=== PATIENT | female | born 1950 | race Caucasian/White ===

== ENCOUNTER 2018-04-16 12:13 | Emergency (ER) | payer OTHER ==
--- OUTSIDE RECORDS SUMMARY | 2018-04-16 12:16 | XMS REPORT | Clinical Summary ---
:1950 Author Organization [facility] Address [address] [place] [address] Care Team Providers Name Role Phone Frank Silva MD Primary Care Provider Allergies Active Allergy Reactions Severity Noted Date Comments Codeine GI Intolerance 10/17/2017 Bad nausea Iodine Swelling, Rash High 10/17/2017 Throat swelling Penicillin G 10/17/2017 Medications Medication Sig Dispensed Refills Start End Date Status Date TOPROL XL 50 mg 24 hr 50 mg daily. 0 Active tablet 8 losartan (COZAAR) 25 MG Take 25 mg by 0 Active tablet mouth daily. 8 fluticasone (FLONASE) daily. 0 Active 50 mcg/actuation nasal 8 spray HYDROcodone-acetaminoph Take by mouth 0 Active en (NORCO) 10-325 mg every 6 (six) 8 per tablet hours as needed. omeprazole (PriLOSEC) Take 20 mg by 0 Active 20 MG capsule mouth daily. evolocumab (REPATHA Inject 140 mg 0 Active SURECLICK) 140 mg/mL under the skin pen injector injection every 14 (fourteen) days. ibuprofen Take 800 mg by 0 Active (ADVIL,MOTRIN) 800 MG mouth every 6 tablet (six) hours as needed for mild pain. traMADol (ULTRAM) 50 mg Take 50 mg by 0 11/09/19 Discontinued tablet mouth every 6 8 18 (six) hours as needed. methylPREDNISolone Take 1 tablet (32 mg total) by mouth daily for 2 days. Take 1 tab 6 hours prior to injection. 2 tablet 0 10/20/19 (MEDROL) 32 MG Take 1 tab 2 hours prior to injection 8 18 tabletIndications: Allergy to iodine diphenhydrAMINE Take 1 capsule 1 capsule 0 11/08/19 Discontinued (BENADRYL) 50 MG (50 mg total) 8 18 capsuleIndications: by mouth daily Allergy to iodine for 30 days. Take 1 tab 2 hours prior to injection traMADol (ULTRAM) 50 mg Take 1 tablet 40 tablet 1 12/19/19 tablet (50 mg total) 8 18 by mouth every 6 (six) hours as needed for severe pain for up to 40 days. traMADol (ULTRAM) 50 mg Take 1 tablet 30 tablet 1 03/27/19 tablet (50 mg total) 8 19 by mouth every 6 (six) hours as needed for moderate pain for up to 60 days. Active Problems Not on file Encounters Date Type Specialty Care Team Description 01/26/2018 Orders Only Orthopedic Surgery Brittany Green MA 01/26/2018 Refill Orthopedic Surgery Gerber Mantilla MD 01/04/2018 Office Visit Orthopedic Surgery Gerber Mantilla Lumbar herniated MD Shine disc (Primary Dx) 12/07/2017 Office Visit Orthopedic Surgery Gerber Mantilla Lumbar herniated MD [facility] disc (Primary Dx) 11/24/2017 Surgery Orthopedic Surgery Gerber Mantilla REVISION DISCECTOMY MD [facility] AND FUSION L4-5 11/24/2017 Anesthesia Event Orthopedic Surgery Sunil Kenney, ARTHUR 11/24/2017 Hospital Encounter Orthopedic Surgery Gerber Mantilla Bulge of lumbar disc without myelopathy; MD [facility] Lumbar stenosis with neurogenic claudication; Lumbosacral spinal stenosis; Acute sciatica; Acquired spondylolisthesis; Ankylosis of lumbosacral joint 11/17/2017 Documentation Orthopedic Surgery Gerber Mantilla MD 11/07/2017 Pre-Admit Testing Pre-Admission Gerber Mantilla Preop testing Appointment Testing MD Shine (Primary Dx) 11/07/2017 Office Visit Orthopedic Gerber Cedeno Lumbar herniated MD [facility] disc (Primary Dx) 10/24/2017 Hospital Encounter Radiology Gerber Mantilla Lumbar disc MD Shine herniation 10/17/2017 Office Visit Orthopedic Surgery Gerber Mantilla Lumbar disc herniation (Primary Dx); MD [facility] Allergy to iodine after 04/15/2017 Family History Medical History Relation Name Comments Cancer Mother Gissel Relation Name Status Comments Mother Gissel Social History Tobacco Use Types Packs/Day Years Used Date Current Every Day Smoker 0.5 40 Started: 02/27/1967 Smokeless Tobacco: Never Used Alcohol Use Drinks/Week oz/Week Comments No Sex Assigned at Date Recorded Not on file Job Start Date Occupation Industry Not on file Not on file Not on file Travel History Travel Start Travel End No recent travel history available. Last Filed Vital Signs Vital Sign Reading Time Taken Blood Pressure 145/65 11/24/2017 10:40 AM CDT Pulse 60 11/24/2017 10:40 AM CDT Temperature 36.3 C (97.4 F) 11/24/2017 10:40 AM CDT Respiratory Rate 16 11/24/2017 10:40 AM CDT Oxygen Saturation 98% 11/24/2017 10:40 AM CDT Inhaled Oxygen Concentration - - Weight 93.4 kg (206 lb) 11/24/2017 5:53 AM CDT Height 167.6 cm (5' 6") 11/24/2017 5:53 AM CDT Body Mass Index 33.25 11/24/2017 5:53 AM CDT Plan of Treatment Health Maintenance Due Date Last Done Comments BREAST CANCER SCREENING 2001 COLON CANCER SCREENING 2001 SHINGLES VACCINES (1 of 2) 2001 PNEUMOCOCCAL POLYSACCHARIDE VACCINE AGE 65 AND OVER 2016 PNEUMOCOCCAL-13 2016 INFLUENZA VACCINE 09/27/2017 Implants Implanted Type Area Director Of Market Research Device Shelf Model / Identifier Expiration Serial / Lot Date Nufix 5.0 Mm [employer]el - [id number] - [id number] Spinal N/A: 09/08/2022 [id number] / Implanted: Qty: 1 on 11/24/2017 by Gerber Mantilla MD Implants Spine [id number] / Lumbar LOT NA Nufix 5.0 [employer]el - [id number] - [id number] Spinal N/A: 09/08/2022 [id number] / Implanted: Qty: 1 on 11/24/2017 by Gerber Mantilla MD Implants Spine [id number] / Lumbar LOT NA Procedures Procedure Name Priority Date/Time Associated Comments Diagnosis SURGICAL PATHOLOGY Routine 11/24/2017 8:27 Results for this REQUEST AM CDT procedure are in the results section. NH AN ELECTIVE Routine 11/24/2017 7:36 ENDOTRACHEAL AIRWAY AM CDT Procedure Note - Valentino Smith CRNA - 11/24/2017 7:36 AM CDT Airway Date/Time: 11/24/2017 7:20 AM Performed by: VALENTINO SMITH Authorized by: MAYCOL FERREIRA Location: OR Urgency: Elective Difficult Airway: No Anesthesiologist: MAYCOL FERREIRA Resident/SURVEYING TEACHER/AA: VALENTINO SMITH Performed by: resident/SURVEYING TEACHER/AA Preoxygenated with 100% O2: Yes C-spine Precautions Maintained Throughout: Yes Mask Ventilation: Easy mask Final Airway Type: Endotracheal airway Final Endotracheal Airway: ETT Cuffed: Yes Technique Used: Direct laryngoscopy Devices/Methods Used in Placement: Intubating stylet Insertion Site: Oral Blade Type: Duron Laryngoscope Blade/Videolaryngoscope Blade Size: 2 ETT Size (mm): 7.0 Cuff at minimum occlusion pressure: Yes Measured from: Lips ETT to Lips (cm): 21 Placement Verified by: CO2 detection, direct visualization and equal breath sounds Laryngoscopic view: Grade I - full view of glottis Rapid Sequence Induction (RSI): No Modified RSI: No Number of Attempts at Approach: 1 Smooth, atraumatic laryngoscopy; dentition intact OR [place] < 1 HOUR Routine 11/24/2017 7:35 AM Results for this CDT procedure are in the results section. DISCECTOMY, 11/24/2017 7:15 AM Bulge of lumbar disc LUMBAR CDT without myelopathy Lumbar stenosis with neurogenic claudication Lumbosacral spinal stenosis Acute sciatica Acquired spondylolisthesis Ankylosis of lumbosacral joint Case Notes LARGE C-ARM Special Needs LARGE C-ARM, MICROSCOPE ECG PRE/POST OP Routine 11/07/2017 11:44 AM Preop testing Results for this CDT procedure are in the results section. ESTIMATED GFR Routine 11/07/2017 11:21 AM Results for this CDT procedure are in the results section. COMPREHENSIVE Routine 11/07/2017 11:21 AM Preop testing Results for this METABOLIC PANEL CDT procedure are in the results section. HC COMPLETE BLD COUNT Routine 11/07/2017 11:21 AM Preop testing Results for this W/AUTO DIFF CDT procedure are in the results section. IR EPIDURAL INJECTION Routine 10/24/2017 2:00 PM Lumbar disc Results for this LUMBAR CDT herniation procedure are in the results section. after 04/15/2017 Results Surgical pathology request (11/24/2017 8:27 AM CDT) [facility] DEPARTMENT OF PATHOLOGY AND GENOMIC MEDICINE Surgical pathology report See link below for PDF [facility] DEPARTMENT OF Lab Report PATHOLOGY AND GENOMIC MEDICINE Result status This is Final Report [facility] DEPARTMENT OF for [id number] PATHOLOGY AND GENOMIC MEDICINE Performing Organization Address City/[facility] Phone Number [facility] DEPARTMENT OF PATHOLOGY AND [address] [place] [address] GENOMIC MEDICINE OR [place] < 1 Hour (11/24/2017 7:35 AM CDT) Narrative Performed At IMPRESSION: C-arm fluoroscopy under one hour was provided in the OR for [facility] the referring physician. A radiologist was not present during the procedure. Refer to the Operative report issued by the performing provider for procedure details. LOCATION:[facility] 19 OR ROOM# 8 PROCEDURE:LUMBAR FUSION L4-L5 START TIME:7:15 END TIME:7:35 FLUORO TIME:3 SECONDS DOSE (mGy):3.46mGy TECH(S):GXA # 70 [id number] Procedure Note Hm Interface, Radiology Results Incoming - 11/24/2017 11:11 AM CDT IMPRESSION: C-arm fluoroscopy under one hour was provided in the OR for the referring physician. A radiologist was not present during the procedure. Refer to the Operative report issued by the performing provider for procedure details. LOCATION: [facility] 19 OR ROOM # 8 PROCEDURE: LUMBAR FUSION L4-L5 START TIME: 7:15 END TIME: 7:35 FLUORO TIME: 3 SECONDS DOSE (mGy):3.46 mGy TECH(S): GXA # 70 [id number] Performing Organization Address City/[facility]/Zipcode Phone Number [facility] [address] [place] [address] ECG Pre/Post Op (11/07/2017 11:44 AM CDT) Ventricular rate 54 [facility] Atrial rate 54 [facility] NH interval 160 [facility] QRSD interval 90 [facility] QT interval 422 [facility] QTC interval 400 [facility] P axis 1 62 [facility] QRS axis 1 38 [facility] T wave axis 61 [facility]USE EKG impression Sinus bradycardia-Possible Left atrial [facility] MUSE enlargement-Borderline ECG-No previous ECGs available- Performing Organization Address [facility] Phone Number [facility] MUSE [address] [place] [address] Estimated GFR (11/07/2017 11:21 AM CDT) GFR Non Af Amer 77 mL/min/1.73 m2 [facility] DEPARTMENT OF PATHOLOGY AND GENOMIC MEDICINE GFR Af Amer >90 mL/min/1.73 m2 [facility] DEPARTMENT OF Comment: PATHOLOGY AND GENOMIC Chronic kidney disease: <60 mL/min/1.73m2 MEDICINE Kidney failure: <15 mL/min/1.73m2 The estimated GFR is calculated from the IDMS-traceable Modification of Diet in Renal Disease Equation. The accuracy of the calculation is poor when the creatinine is normal. Calculated values >90 mL/min/1.73m2 are not reported. This equation has not been validated in children (<18 years), women, the elderly (>70 years), or ethnic groups other than Caucasians and Americans. Specimen Plasma specimen Performing Organization Address City/[facility]/Zipcode Phone Number [facility] DEPARTMENT OF PATHOLOGY AND [address] [place] [address] [email or web address] [facility] CBC with platelet and differential (11/07/2017 11:21 AM CDT) WBC 8.15 4.50 - 11.00 k/uL [facility] DEPARTMENT OF PATHOLOGY AND GENOMIC MEDICINE RBC 4.26 4.20 - 5.50 m/uL [facility] DEPARTMENT OF PATHOLOGY AND GENOMIC MEDICINE HGB 12.7 12.0 - 16.0 g/dL [facility] DEPARTMENT OF PATHOLOGY AND GENOMIC MEDICINE HCT 39.4 37.0 - 47.0 % [facility] DEPARTMENT OF PATHOLOGY AND GENOMIC MEDICINE MCV 92.5 82.0 - 100.0 fL [facility] DEPARTMENT OF PATHOLOGY AND GENOMIC MEDICINE MCH 29.8 27.0 - 34.0 pg [facility] DEPARTMENT OF PATHOLOGY AND GENOMIC MEDICINE MCHC 32.2 31.0 - 37.0 g/dL [facility] DEPARTMENT OF PATHOLOGY AND GENOMIC MEDICINE RDW - SD 45.2 37.0 - 55.0 fL [facility] DEPARTMENT OF PATHOLOGY AND GENOMIC MEDICINE MPV 11.4 8.8 - 13.2 fL [facility] DEPARTMENT OF PATHOLOGY AND GENOMIC MEDICINE Platelet count 239 150 - 400 k/uL [facility] DEPARTMENT OF PATHOLOGY AND GENOMIC MEDICINE Nucleated RBC 0.00 /100 WBC [facility] DEPARTMENT OF PATHOLOGY AND GENOMIC MEDICINE Neutrophils 60.6 39.0 - 69.0 % [facility] DEPARTMENT OF PATHOLOGY AND GENOMIC MEDICINE Lymphocytes 30.7 25.0 - 45.0 % [facility] DEPARTMENT OF PATHOLOGY AND GENOMIC MEDICINE Monocytes 5.6 0.0 - 10.0 % [facility] DEPARTMENT OF PATHOLOGY AND GENOMIC MEDICINE Eosinophils 1.7 0.0 - 5.0 % [facility] DEPARTMENT OF PATHOLOGY AND GENOMIC MEDICINE Basophils 0.9 0.0 - 1.0 % [facility] DEPARTMENT OF PATHOLOGY AND GENOMIC MEDICINE Immature granulocytes 0.5Comment: 0.0 - 1.0 % [facility] DEPARTMENT OF "Immature PATHOLOGY AND GENOMIC granulocytes" MEDICINE (promyelocytes, myelocytes, metamyelocytes) Specimen Blood Performing Organization Address City/State/Zipcode Phone Number [facility] DEPARTMENT OF PATHOLOGY AND [address] [place] [phone] GENOMIC MEDICINE Comprehensive metabolic panel (11/07/2017 11:21 AM CDT) Sodium 142 135 - 148 mEq/L [facility] DEPARTMENT OF PATHOLOGY AND GENOMIC MEDICINE Potassium 4.3 3.5 - 5.0 mEq/L [facility] DEPARTMENT OF PATHOLOGY AND GENOMIC MEDICINE Chloride 103 98 - 112 mEq/L [facility] DEPARTMENT OF PATHOLOGY AND GENOMIC MEDICINE CO2 27 24 - 31 mEq/L [facility] DEPARTMENT OF PATHOLOGY AND GENOMIC MEDICINE Anion gap 12@ANIO 7 - 15 mEq/L [facility] DEPARTMENT OF PATHOLOGY AND GENOMIC MEDICINE BUN 15 8 - 23 mg/dL [facility] DEPARTMENT OF PATHOLOGY AND GENOMIC MEDICINE Creatinine 0.75 0.50 - 0.90 mg/dL [facility] DEPARTMENT OF PATHOLOGY AND GENOMIC MEDICINE Glucose 90 65 - 99 mg/dL [facility] DEPARTMENT OF PATHOLOGY AND GENOMIC MEDICINE Calcium 9.8 8.8 - 10.2 mg/dL [facility] DEPARTMENT OF PATHOLOGY AND GENOMIC MEDICINE Protein 6.9 6.3 - 8.3 g/dL [facility] DEPARTMENT OF Comment: PATHOLOGY AND GENOMIC [place] 4.6-7.0 g/dL MEDICINE 1 week 4.4-7.6 g/dL 7 months-1year5.1-7.3 g/dL 1-2 years5.6-7.5 g/dL >3 years6.0-8.0 g/dL 18-150 6.3-8.3 g/dL Albumin 3.6 3.5 - 5.0 g/dL [facility] DEPARTMENT OF PATHOLOGY AND GENOMIC MEDICINE A/G ratio 1.1 0.7 - 3.8 [facility] DEPARTMENT OF PATHOLOGY AND GENOMIC MEDICINE Alkaline phosphatase 81 35 - 104 U/L [facility] DEPARTMENT OF PATHOLOGY AND GENOMIC MEDICINE AST 25 10 - 35 U/L [facility] DEPARTMENT OF PATHOLOGY AND GENOMIC MEDICINE ALT 23 5 - 50 U/L [facility] DEPARTMENT OF PATHOLOGY AND GENOMIC MEDICINE Total bilirubin 0.5 0.0 - 1.2 mg/dL [facility] DEPARTMENT OF PATHOLOGY AND GENOMIC MEDICINE Specimen Plasma specimen Performing Organization Address City/State/Zipcode Phone Number [facility] DEPARTMENT OF PATHOLOGY AND [address] [place] [address] [facility] IR Epidural Injection Lumbar (10/24/2017 2:00 PM CDT) Narrative Performed At EXAMINATION:IR EPIDURAL INJECTION LUMBAR HM [facility] CLINICAL HISTORY:M51.26 Other intervertebral disc displacementlumbar region, HNP OPERATORS: Dr. Rainey CONSENT: The risks and benefits of the procedure were fully explained to the patient in detail and all the patient's questions were answered. The patient agreed to proceed with the procedure and signed an informed consent. TECHNIQUE: The patient was brought to the angio suite and placed on the fluoroscopy table in prone position. The patient's lumbar region was prepped and draped in standard sterile fashion. Under fluoroscopy, the L4-Y8bbiql was localized. Previous L4 left hemilaminotomy is noted, therefore the epidural space was localized from the right paramedial approach. The skin over that region was infiltrated with 1% lidocaine. Under real-time fluoroscopic guidance, a 20 gauge Touhy needle was advanced percutaneously to theL4-Y9ehmcbada space via paramedial approach. Then, 2 cc of nonionic contrast agent was slowly injected, which demonstrated epidurogram of theL5 level. Subsequently 2 cc of Marcaine 0.25% and 10 milligrams of Decadron was slowly injected into the epidural space with intermittent pause to assess for any adverse effects of injection. The needle was then withdrawn and hemostasis was achieved with adequate pressure. The patient tolerated the procedure well without any immediate complications. TOTAL FLUOROSCOPY TIME: 0.1 minutes. Total fluoroscopic exposure images was 2 images. Total radiation exposure was 50 mGy. IMMEDIATE POST PROCEDURE FOLLOW-UP: The patient was observed in the radiology holding area for 45 minutes. At the conclusion of the observation period, the patient expressed 20 percent of the baseline pain. IMPRESSION: Successful uncomplicated fluoroscopic guided interlaminar epidural steroid injection atL4-L5. [facility]-[id number] Procedure Note Interface, Radiology Results Incoming - 10/24/2017 2:58 PM CDT EXAMINATION: IR EPIDURAL INJECTION LUMBAR CLINICAL HISTORY: M51.26 Other intervertebral disc displacement lumbar region , HNP OPERATORS: Dr. Rainey CONSENT: The risks and benefits of the procedure were fully explained to the patient in detail and all the patient's questions were answered. The patient agreed to proceed with the procedure and signed an informed consent. TECHNIQUE: The patient was brought to the angio suite and placed on the fluoroscopy table in prone position. The patient's lumbar region was prepped and draped in standard sterile fashion. Under fluoroscopy, the L4-L5 level was localized. Previous L4 left hemilaminotomy is noted, therefore the epidural space was localized from the right paramedial approach. The skin over that region was infiltrated with 1% lidocaine. Under real-time fluoroscopic guidance, a 20 gauge Touhy needle was advanced percutaneously to the L4-L5 epidural space via paramedial approach. Then, 2 cc of nonionic contrast agent was slowly injected, which demonstrated epidurogram of the L5 level. Subsequently 2 cc of Marcaine 0.25% and 10 milligrams of Decadron was slowly injected into the epidural space with intermittent pause to assess for any adverse effects of injection. The needle was then withdrawn and hemostasis was achieved with adequate pressure. The patient tolerated the procedure well without any immediate complications. TOTAL FLUOROSCOPY TIME: 0.1 minutes. Total fluoroscopic exposure images was 2 images. Total radiation exposure was 50 mGy. IMMEDIATE POST PROCEDURE FOLLOW-UP: The patient was observed in the radiology holding area for 45 minutes. At the conclusion of the observation period, the patient expressed 20 percent of the baseline pain. IMPRESSION: Successful uncomplicated fluoroscopic guided interlaminar epidural steroid injection at L4-L5. [facility]-[id number] Performing Organization Address City/State/Zipcode Phone Number [facility] [address] [place] [address] after 04/15/2017 Insurance Payer Benefit Plan / Group Subscriber ID Type Phone Address AETNA MEDICARE AETNA MEDICARE HMO/PPO [facility] xxxxxxxx HMO Advance Directives Patient has advance care planning documents on file. For more information, please contact:Francisco Singh[address] [place] [address]
--- NOTE | 2018-04-16 13:41 | RAD REPORT ---
EXAM DESCRIPTION: CT - Stone Protocol - 04/16/2018 1:21 pm CLINICAL HISTORY: Abdominal pain. Right flank pain COMPARISON: None. TECHNIQUE: Computed axial tomography of the abdomen pelvis was obtained without oral or IV contrast. Lack of IV and oral contrast limits evaluation of solid organs, bowel, and vessels. Coronal reformat ran images were obtained and reviewed. All CT scans are performed using dose optimization technique as appropriate and may include automated exposure control or mA/KV adjustment according to patient size. FINDINGS: Moderate right hydronephrosis with right perirenal stranding. Small calculi suspected with in the lower pole calyx. The right ureter is dilated. A ureteral calculus is not seen. A bladder calc ulus is not noted. Left renal calculus is not seen. The liver, spleen, pancreas and adrenals appear grossly normal There is no evidence of diverticulitis. The appendix appears normal IMPRESSION: Moderate right hydronephrosis. Right ureter is dilated. A ureteral calculus is not seen. Perhaps the patient has had a recently passed calculus.
[2018-04-16] MEDS ORDERED: FENTANYL CITR 100 MCG/2 ML ONE (13:50)
[2018-04-16] MEDS ORDERED: ONDANSETRON 4 MG/2 ML VIAL ONE (13:50)
[2018-04-16] MEDS ORDERED: NA CHLORIDE 0.9% 1,000 ML ONE (13:51)
[2018-04-16 14:16] LABS: Absolute Lymphocytes (CBC) 1.8 K/uL (0.7-4.9); Absolute Monocytes 0.6 K/uL (0.1-1.3); Absolute Neutrophil 7.2 K/uL (1.8-8.0); Basophils % 0.9 % (0-1.3); Eosinophils % 1.1 % (0-4.4); Hematocrit 42.6 % (36.0-45.0); Lymphocytes % 18.5 % (15.3-44.8); MPV 10.3 fL (7.6-11.3); Monocytes % 6.5 % (3.3-12.3); RBC Red Blood Cell Count 4.85 M/uL (3.86-4.86)
[2018-04-16 14:21] LABS: Urine Blood 3+ (NEG); Urine Glucose NEGATIVE (NEG); Urine Protein 2+ (NEG); Urine pH 8.5 (5.0-7.0)
[2018-04-16 14:26] LABS: Potassium 3.7 mmol/L (3.5-5.1)
[2018-04-16] MEDS ORDERED: KETOROLAC 30 MG/ML INJ ONE (14:57)
[2018-04-16 15:08] LABS: Urine Amorphous Sediment 1+ /HPF (NONE SEEN); Urine Bacteria <20 /HPF (<20); Urine Culture Reflex Order REFLEXED; Urine Mucus 1+ /HPF (NONE SEEN); Urine RBC >50 /HPF (NONE SEEN)
--- NOTE | 2018-04-16 15:17 | ER ---
Nurse's Notes [facility] Name: Leandra Bishop Age: 68 yrs Sex: Female : 1950 Arrival Date: 04/16/2018 Time: 12:15 Bed 18 Private MD: Pa Silva B Diagnosis: Calculus of kidney and ureter;Hydronephrosis Presentation: 04/16 12:52 Presenting complaint: RLQ pain that radiates to right flank sine this morning. hb Transition of care: patient was not received from another setting of care. Onset of symptoms was April 16, 2018. Risk Assessment: Do you want to hurt yourself or someone else? Patient reports no desire to harm self or others. Care prior to arrival: None. 12:52 Method Of Arrival: Ambulatory hb 12:52 Acuity: RODGER 3 hb 13:15 Initial Sepsis Screen: Does the patient meet any 2 criteria? No. Patient's initial hb sepsis screen is negative. Does the patient have a suspected source of infection? No. Patient's initial sepsis screen is negative. Historical: - Allergies: 12:55 Iodine; hb 12:55 PENICILLINS; hb 12:55 Codeine; hb - Home Meds: 12:55 metoprolol tartrate 50 mg oral tab [Active]; losartan oral oral [Active]; hb - PMHx: 12:55 "rapid heartbeat"; Hypertension; hb - Immunization history:: Adult Immunizations up to date. - Social history:: Smoking status: Patient uses tobacco products, smokes one-half pack cigarettes per day. - Ebola Screening: : No symptoms or risks identified at this time. Screenin:56 Abuse screen: Denies threats or abuse. Denies injuries from another. Nutritional hb screening: No deficits noted. Tuberculosis screening: No symptoms or risk factors identified. Fall Risk None identified. Assessment: 13:00 General: Appears in no apparent distress. uncomfortable, Behavior is calm, cooperative. hb Pain: Pain currently is 10 out of 10 on a pain scale. Neuro: Level of Consciousness is awake, alert, obeys commands, Oriented to person, place, time, situation. Cardiovascular: Capillary refill < 3 seconds Patient's skin is warm and dry. Respiratory: Airway is patent Respiratory effort is even, unlabored, Respiratory pattern is regular, symmetrical. GI: Abdomen is non-distended, Bowel sounds present X 4 quads. Abd is soft and non tender. : No signs and/or symptoms were reported regarding the genitourinary system. EENT: No signs and/or symptoms were reported regarding the EENT system. Derm: Skin is intact, is healthy with good turgor. Musculoskeletal: No signs and/or symptoms reported regarding the musculoskeletal system. 14:00 Reassessment: Patient appears in no apparent distress at this time. Patient and/or hb family updated on plan of care and expected duration. Pain level reassessed. Patient is alert, oriented x 3, equal unlabored respirations, skin warm/dry/pink. 15:00 Reassessment: Patient appears in no apparent distress at this time. Patient and/or hb family updated on plan of care and expected duration. Pain level reassessed. Patient is alert, oriented x 3, equal unlabored respirations, skin warm/dry/pink. Patient denies pain at this time. Patient states symptoms have improved. Vital Signs: 12:45 BP 181 / 73; Pulse 65; Resp 16; Pulse Ox 100% on R/A; Pain 10/10; hb 12:53 BP 205 / 93; Pulse 71; Resp 16; Temp 97.9; Pulse Ox 100% on R/A; Pain 10/10; hb 14:30 BP 152 / 65; Pulse 62; Resp 16; Pulse Ox 98% on R/A; hb 15:15 BP 148 / 64; Pulse 66; Resp 15; Pulse Ox 100% on R/A; hb ED Course: 12:15 Patient arrived in ED. mr 12:16 Pa Silva MD is Private Physician. mr 12:52 Palak Banks, LEXY is Primary Nurse. hb 12:53 Triage completed. hb 12:55 Lucia Alexandra FNP-C [facility]. kb 12:55 Tolu Card MD is Attending Physician. kb 12:55 Arm band placed on. hb 13:08 Initial lab(s) drawn, by me, sent to lab. Inserted saline lock: 20 gauge in right dh3 antecubital area, using aseptic technique. Blood collected. 13:15 Patient has correct armband on for positive identification. Placed in gown. Bed in low hb position. Call light in reach. Side rails up X 1. 13:20 CT Stone Protocol In Process Unspecified. EDMS 13:21 CT completed. Patient tolerated procedure well. Patient moved to CT via wheelchair. jg6 Patient moved back from CT. 13:25 CT completed. Patient tolerated procedure well. Patient moved to CT via stretcher. jg6 Patient moved back from CT. 15:40 No provider procedures requiring assistance completed. IV discontinued, intact, hb bleeding controlled, No redness/swelling at site. Pressure dressing applied. Administered Medications: 13:47 Drug: fentaNYL (PF) 50 mcg Route: IVP; Site: right antecubital; hb 14:49 Follow up: Response: No adverse reaction hb 13:47 Drug: Zofran 4 mg Route: IVP; Site: right antecubital; hb 14:30 Follow up: Response: No adverse reaction hb 13:48 Drug: NS 0.9% 1000 ml Route: IV; Rate: 1000 ml; Site: right antecubital; hb 14:58 Follow up: Response: No adverse reaction; IV Status: Completed infusion hb 14:49 Drug: TORadol 30 mg Route: IVP; Site: right antecubital; hb 15:38 Follow up: Response: No adverse reaction; Pain is decreased hb Outcome: 15:16 Discharge ordered by . kb 15:40 Discharged to home ambulatory, with significant other. hb 15:40 Condition: stable 15:40 Discharge instructions given to patient, significant other, Instructed on discharge instructions, follow up and referral plans. medication usage, Demonstrated understanding of instructions, follow-up care, medications, Prescriptions given X 3. 15:41 Patient left the ED. hb Signatures: Dispatcher [employer] EDND Lucia Alexandra, ELLA ORTIZ-Maureen Mera Heather, LEXY RN Angely Salter [facility] Jenn Patiño6
--- NOTE | 2018-04-16 15:17 | EDPHYS ---
Physician Documentation [facility] Name: Leandra Bishop Age: 68 yrs Sex: Female : 1950 Arrival Date: 04/16/2018 Time: 12:15 Bed 18 Private MD: Pa Silva B ED Physician Tolu Card HPI: 04/16 13:08 This 68 yrs old Female presents to ER via Ambulatory with complaints of kb Possible Kidney Stone. 13:08 The patient complains of pain in the right flank. The pain radiates to the right lower kb quadrant. Onset: The symptoms/episode began/occurred today, at 10:30. Modifying factors: The symptoms are alleviated by nothing. the symptoms are aggravated by palpation/percussion. Associated signs and symptoms: Pertinent positives: urinary frequency, hematuria. Severity of pain: At its worst the pain was moderate in the emergency department the pain is unchanged. The patient has experienced similar episodes in the past. The patient has not recently seen a physician. Historical: - Allergies: 12:55 Iodine; hb 12:55 PENICILLINS; hb 12:55 Codeine; hb - Home Meds: 12:55 metoprolol tartrate 50 mg oral tab [Active]; losartan oral oral [Active]; hb - PMHx: 12:55 "rapid heartbeat"; Hypertension; hb - Immunization history:: Adult Immunizations up to date. - Social history:: Smoking status: Patient uses tobacco products, smokes one-half pack cigarettes per day. - Ebola Screening: : No symptoms or risks identified at this time. ROS: 13:08 Constitutional: Negative for fever, chills, and weight loss, Cardiovascular: Negative kb for chest pain, palpitations, and edema, Respiratory: Negative for shortness of breath, cough, wheezing, and pleuritic chest pain, Abdomen/GI: Negative for abdominal pain, nausea, vomiting, diarrhea, and constipation, MS/Extremity: Negative for injury and deformity, Skin: Negative for injury, rash, and discoloration, Neuro: Negative for headache, weakness, numbness, tingling, and seizure. 13:08 : Positive for urinary symptoms, flank pain, small amounts, hematuria, difficulty urinating. Exam: 13:07 Constitutional: This is a well developed, well nourished patient who is awake, alert, kb and in no acute distress. Head/Face: Normocephalic, atraumatic. Chest/axilla: Normal chest wall appearance and motion. Nontender with no deformity. No lesions are appreciated. Cardiovascular: Regular rate and rhythm with a normal S1 and S2. No gallops, murmurs, or rubs. Normal PMI, no JVD. No pulse deficits. Respiratory: Lungs have equal breath sounds bilaterally, clear to auscultation and percussion. No rales, rhonchi or wheezes noted. No increased work of breathing, no retractions or nasal flaring. Abdomen/GI: Soft, non-tender, with normal bowel sounds. No distension or tympany. No guarding or rebound. No evidence of tenderness throughout. Skin: Warm, dry with normal turgor. Normal color with no rashes, no lesions, and no evidence of cellulitis. MS/ Extremity: Pulses equal, no cyanosis. Neurovascular intact. Full, normal range of motion. Neuro: Awake and alert, GCS 15, oriented to person, place, time, and situation. Cranial nerves II-XII grossly intact. Motor strength 5/5 in all extremities. Sensory grossly intact. Cerebellar exam normal. Normal gait. 13:07 Back: CVA tenderness, that is mild, is noted on the right. Vital Signs: 12:45 BP 181 / 73; Pulse 65; Resp 16; Pulse Ox 100% on R/A; Pain 10/10; hb 12:53 BP 205 / 93; Pulse 71; Resp 16; Temp 97.9; Pulse Ox 100% on R/A; Pain 10/10; hb 14:30 BP 152 / 65; Pulse 62; Resp 16; Pulse Ox 98% on R/A; hb 15:15 BP 148 / 64; Pulse 66; Resp 15; Pulse Ox 100% on R/A; hb MDM: 12:55 Patient medically screened. kb 13:07 Data reviewed: vital signs, nurses notes. Data interpreted: Pulse oximetry: on room air kb is 100 %. Interpretation: normal. 15:15 Counseling: I had a detailed discussion with the patient and/or guardian regarding: the kb historical points, exam findings, and any diagnostic results supporting the discharge/admit diagnosis, lab results, radiology results, the need for outpatient follow up, a family practitioner, to return to the emergency department if symptoms worsen or persist or if there are any questions or concerns that arise at home. 15:17 Response to treatment: the patient's symptoms have resolved after treatment, the patient's pain is gone. 04/16 12:59 Order name: CBC with Diff; Complete Time: 14:20 kb 04/16 12:59 Order name: Basic Metabolic Panel; Complete Time: 14:31 kb 04/16 12:59 Order name: Urine Microscopic Only; Complete Time: 15:15 kb 04/16 12:59 Order name: CT Stone Protocol; Complete Time: 13:43 kb 04/16 13:11 Order name: Urine Dipstick--Ancillary (enter results); Complete Time: 14:22 bd 04/16 15:10 Order name: Urine Culture EDMS 04/16 12:59 Order name: Urine Dipstick-Ancillary (obtain specimen); Complete Time: 13:15 kb 04/16 12:59 Order name: IV Start; Complete Time: 13:15 kb Administered Medications: 13:47 Drug: fentaNYL (PF) 50 mcg Route: IVP; Site: right antecubital; hb 14:49 Follow up: Response: No adverse reaction hb 13:47 Drug: Zofran 4 mg Route: IVP; Site: right antecubital; hb 14:30 Follow up: Response: No adverse reaction hb 13:48 Drug: NS 0.9% 1000 ml Route: IV; Rate: 1000 ml; Site: right antecubital; hb 14:58 Follow up: Response: No adverse reaction; IV Status: Completed infusion hb 14:49 Drug: TORadol 30 mg Route: IVP; Site: right antecubital; hb 15:38 Follow up: Response: No adverse reaction; Pain is decreased hb Disposition: 04/17 07:13 Co-signature as Attending Physician, Tolu Card MD I agree with the assessment and virgen plan of care. Disposition: 04/16/18 15:16 Discharged to Home. Impression: Calculus of kidney and ureter, Hydronephrosis. - Condition is Stable. - Discharge Instructions: Kidney Stones, [id number], Dietary Guidelines to Help Prevent Kidney Stones. - Prescriptions for Zofran 4 mg Oral Tablet - take 1 tablet by ORAL route every 6 hours As needed; 20 tablet. Diclofenac Sodium 75 mg Oral Tablet, Delayed Release (E.C.) - take 1 tablet by ORAL route 2 times per day As needed; 30 tablet. Macrobid 100 mg Oral Capsule - take 1 capsule by ORAL route every 12 hours for 7 days; 14 capsule. - Medication Reconciliation Form, Thank You Letter, Antibiotic Education, Prescription Opioid Use form. - Follow up: Emergency Department; When: As needed; Reason: Worsening of condition. Follow up: Private Physician; When: 2 - 3 days; Reason: Recheck today's complaints, Continuance of care, Re-evaluation by your physician. Signatures: Dispatcher [employer] EDLucia Lacey FNP-C FNP-Tolu Gee MD MD cha Baxter, Heather, LEXY RN hb Corrections: (The following items were deleted from the chart) 04/16 15:41 15:16 04/16/2018 15:16 Discharged to Home. Impression: Calculus of kidney and ureter; hb Hydronephrosis. Condition is Stable. Forms are Medication Reconciliation Form, Thank You Letter, Antibiotic Education, Prescription Opioid Use. Follow up: Emergency Department; When: As needed; Reason: Worsening of condition. Follow up: Private Physician; When: 2 - 3 days; Reason: Recheck today's complaints, Continuance of care, Re-evaluation by your physician. kb
== END 2018-04-16 15:41 | disposition home or self-care (01) ==
LOC: ER 12:13
DX: N13.2 Hydronephrosis with renal and ureteral calculous obstruction (principal); I10 Essential (primary) hypertension; F17.210 Nicotine dependence, cigarettes, uncomplicated; Z88.5 Allergy status to narcotic agent; Z88.0 Allergy status to penicillin; Z88.8 Allergy status to other drugs, medicaments and biological substances
CPT/HCPCS: 36415; 74176; 76377; 80048; 85025; 87086; 87088; J2405; J3010; J7030; 81003; 81015; 96361; 96374; 96375; 99284